=== PATIENT | male | born 1995 | race Caucasian/White ===

== ENCOUNTER 2023-06-23 23:16 | Emergency (ER) | payer OTHER, SELFPAY ==
[2023-06-23 23:11] VITALS: BP 116/75; PULSE 63; RESP 20; TEMP 36.6; O2SAT 100
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
[2023-06-24 01:17] VITALS: BP 117/69; PULSE 60; RESP 16; TEMP 37; O2SAT 99
== END 2023-06-24 01:30 | disposition home or self-care (01) ==
LOC: ER 06-24 01:40
PROVIDERS: Emergency Provider Emergency Medicine; PCP Internal Medicine
DX: S50.312A Abrasion of left elbow, initial encounter (principal); S60.512A Abrasion of left hand, initial encounter; V48.5XXA Car driver injured in noncollision transport accident in traffic accident, initial encounter; Y92.488 Other paved roadways as the place of occurrence of the external cause
CPT/HCPCS: 76604; 76705; 76857; 90472; 99284; 70450; 71046; 73080; 73110; 73130; 99283